=== PATIENT | male | born 1950 | race Caucasian/White ===

== ENCOUNTER 2017-06-17 10:16 | Emergency (ER) | payer MEDICARE ==
[2017-06-17 10:35] VITALS: BP 116/91
--- NOTE | 2017-06-17 10:44 | EDM.PDOC ---
ED HPI GENERAL MEDICAL PROBLEM - General Chief Complaint: Back Pain or Injury Stated Complaint: FELL; BACK INJURY Time Seen by Provider: 06/17/17 10:38 Source of Information: Reports: Patient, Family History Limitations: Reports: No Limitations - History of Present Illness INITIAL COMMENTS - FREE TEXT/NARRATIVE: pt was getting in the boat this am and his foot slipped and he developed acute pain in his rt post rib cabe when he fell and hit the live well in the boat. Onset: Today Duration: Hour(s): Location: Reports: Chest Associated Symptoms: Reports: No Other Symptoms, Other ( he does have an abrasion on his bacjk and he is current with tetanus. ) right back Pain Score (Numeric/FACES): 7 - Related Data Allergies Allergy/AdvReac Type Severity Reaction Status Date / Time No Known Allergies Allergy Verified 06/17/17 10:21 Home Meds: Home Meds NK [No Known Home Meds] 06/17/17 [History] Past Medical History Gastrointestinal History: Reports: Diverticulosis, Pancreatitis Social & Family History - Caffeine Use Caffeine Use: Reports: Coffee - Alcohol Use Days Per Week of Alcohol Use: 2 Number of Drinks Per Day: 1 Total Drinks Per Week: 2 - Recreational Drug Use Recreational Drug Use: No ED ROS GENERAL - Review of Systems Review Of Systems: See Below Constitutional: Reports: No Symptoms HEENT: Reports: No Symptoms Respiratory: Reports: Other (pt has pain when he takes a deep breath on the rt post rib cage. ) Cardiovascular: Reports: No Symptoms Endocrine: Reports: No Symptoms GI/Abdominal: Reports: No Symptoms : Reports: No Symptoms ED EXAM, UPPER BACK/NECK PAIN - Physical Exam Exam: See Below Text/Narrative:: Pt arrived with pain in the rt post rib cage. He has an abrasion on his back. He had a great deal of pain rt away and could not get up for about 15 minutes. Exam Limited By: No Limitations General Appearance: Alert, Anxious, Moderate Distress Ears Exam: Normal TMs Nose Exam: Normal Inspection Throat/Mouth Exam: Normal Inspection Neck Exam: Non-Tender Cardiovascular/Respiratory: Regular Rate, Rhythm, Other (pt has a large abrasion on the rt post rib cage. There is slight swelling present. He is very tender to palpate in the area of the abrasion. He has breath sounds bilaterally. He has no tenderness over the tspine area. ) GI/Abdominal: Soft, Non-Tender (Male) Exam: Deferred Rectal (Males) Exam: Deferred, Perirectal Abscess Extremities: Normal Inspection Neurologic: Alert Psychiatric: Normal Affect Course - Vital Signs Last Recorded V/S: Last Vital Signs Temp 36.3 C 06/17/17 10:24 Pulse 78 06/17/17 10:24 Resp 20 06/17/17 10:24 BP 116/91 H 06/17/17 10:24 Pulse Ox 95 06/17/17 10:24 - Orders/Labs/Meds Orders: Active Orders 24 hr Category Date Time Status Ang Chest [CT] Stat Exams 06/17/17 11:42 Taken Chest 2V [CR] Stat Exams 06/17/17 10:35 Taken Ribs 3V wo Chest Rt [CR] Stat Exams 06/17/17 10:36 Taken UA W/MICROSCOPIC [URIN] Urgent Lab 06/17/17 12:34 Uncollected Iopamidol [Isovue-370 (76%)] Med 06/17/17 12:15 Active 100 ml IV . DIRECTED Sodium Chloride 0.9% [Normal Saline] 90 ml Med 06/17/17 12:15 Active IV ASDIRECTED Sodium Chloride 0.9% [Saline Flush] Med 06/17/17 11:08 Active 10 ml FLUSH ASDIRECTED PRN Saline Lock Insert [OM.PC] Routine Oth 06/17/17 11:08 Ordered Medication Orders Sodium Chloride (Normal Saline) 90 mls @ 4 mls/sec IV ASDIRECTED ROSARIO Last Admin: 06/17/17 12:25 Dose: 4 mls/sec Iopamidol (Isovue-370 (76%)) 100 ml IV . DIRECTED ROSARIO Last Admin: 06/17/17 12:25 Dose: 100 ml Sodium Chloride (Saline Flush) 10 ml FLUSH ASDIRECTED PRN PRN Reason: Keep Vein Open Labs: Laboratory Tests 06/17/17 06/17/17 Range/Units 11:21 11:21 WBC 11.0 (4.5-11.0) K/uL RBC 4.84 (4.30-5.90) M/uL Hgb 15.6 H (12.0-15.0) g/dL Hct 44.7 (40.0-54.0) % MCV 92 (80-98) fL MCH 32 H (27-31) pg MCHC 35 (32-36) % Plt Count 321 (150-400) K/uL Neut % (Auto) 82 H (36-66) % Lymph % (Auto) 9 L (24-44) % Toole % (Auto) 8 H (2-6) % Eos % (Auto) 1 L (2-4) % Baso % (Auto) 1 (0-1) % Sodium 139 L (140-148) mmol/L Potassium 4.3 (3.6-5.2) mmol/L Chloride 105 (100-108) mmol/L Carbon Dioxide 29 (21-32) mmol/L Anion Gap 9.3 (5.0-14.0) mmol/L BUN 15 (7-18) mg/dL Creatinine 1.2 (0.8-1.3) mg/dL Est Cr Clr Drug Dosing 71.35 mL/min Estimated GFR (MDRD) > 60 (>60) Glucose 129 H (74-106) mg/dL Calcium 8.9 (8.5-10.1) mg/dL Meds: Medications Generic Name Dose Route Start Last Admin Trade Name Freq PRN Reason Stop Dose Admin Sodium Chloride 90 mls @ 4 mls/sec 06/17/17 12:15 06/17/17 12:25 Normal Saline IV 4 mls/sec ASDIRECTED ROSARIO Administration Iopamidol 100 ml 06/17/17 12:15 06/17/17 12:25 Isovue-370 (76%) IV 100 ml . DIRECTED ROSARIO Administration Sodium Chloride 10 ml 06/17/17 11:08 Saline Flush FLUSH ASDIRECTED PRN Keep Vein Open Discontinued Medications Generic Name Dose Route Start Last Admin Trade Name Fresathish PRN Reason Stop Dose Admin Bacitracin 1 dose 06/17/17 10:50 06/17/17 11:49 Bacitracin Oint 1 Gm TOP 06/17/17 10:51 1 dose ONETIME ONE Administration Cyclobenzaprine HCl 10 mg 06/17/17 10:45 06/17/17 10:54 Flexeril PO 06/17/17 10:46 10 mg ONETIME ONE Administration Hydromorphone HCl 0.5 mg 06/17/17 11:14 06/17/17 11:44 Dilaudid IVPUSH 06/17/17 11:15 0.5 mg ONETIME ONE Administration Ketorolac Tromethamine 60 mg 06/17/17 10:45 06/17/17 10:54 Toradol IM 06/17/17 10:46 60 mg ONETIME ONE Administration Sodium Chloride 10 ml 06/17/17 12:03 06/17/17 12:25 Saline Flush FLUSH 06/17/17 12:04 10 ml ONETIME ONE Administration - Re-Assessments/Exams Free Text/Narrative Re-Assessment/Exam: 06/17/17 12:32 pt had a chest xray which looked good. He had rib detail which showed at least 2 fractured ribs just laterasl to the spine posteriorly. Because of the area of contusion a decision was made to cat scan the chest. 06/17/17 13:16 cat scan was obtained which showed a fracture of his 8th and 9th ribs. He has no evidence of a pneumothorax or infiltrate. He has a 1 cm nodule in the rt upper lobe which needs further workup. Departure - Departure Time of Disposition: 13:18 Disposition: Home, Self-Care 01 Condition: Fair Clinical Impression: Fracture, ribs - Discharge Information Referrals: PCP,None [Primary Care Provider] - Forms: ED Department Discharge Care Plan Goals: encourage deep breathing, incentive spirometer, bacatracin to the abrasion, percocet 5/325 q6h prn for pain, flexeril 10mg hs. follow up with own physian regarding a 1 cm nodule in the rt upper lobe, copy of the disc to go with the pt , copy of the cat scan report to go with pt, try a rib belt and see if he is more comfortable. - My Orders Last 24 Hours: My Active Orders 06/17/17 10:35 Chest 2V [CR] Stat 06/17/17 10:36 Ribs 3V wo Chest Rt [CR] Stat 06/17/17 11:08 Sodium Chloride 0.9% [Saline Flush] 10 ml FLUSH ASDIRECTED PRN Saline Lock Insert [OM.PC] Routine 06/17/17 11:42 Ang Chest [CT] Stat 06/17/17 12:15 Iopamidol [Isovue-370 (76%)] 100 ml IV . DIRECTED Sodium Chloride 0.9% [Normal Saline] 90 ml IV ASDIRECTED 06/17/17 12:34 UA W/MICROSCOPIC [URIN] Urgent - Assessment/Plan Last 24 Hours: My Active Orders 06/17/17 10:35 Chest 2V [CR] Stat 06/17/17 10:36 Ribs 3V wo Chest Rt [CR] Stat 06/17/17 11:08 Sodium Chloride 0.9% [Saline Flush] 10 ml FLUSH ASDIRECTED PRN Saline Lock Insert [OM.PC] Routine 06/17/17 11:42 Ang Chest [CT] Stat 06/17/17 12:15 Iopamidol [Isovue-370 (76%)] 100 ml IV . DIRECTED Sodium Chloride 0.9% [Normal Saline] 90 ml IV ASDIRECTED 06/17/17 12:34 UA W/MICROSCOPIC [URIN] Urgent
[2017-06-17] MEDS ORDERED: Ketorolac 60 MG/2 ML SDV IM ONE (10:45)
[2017-06-17] MEDS ORDERED: Cyclobenzaprine 10 MG Tab PO ONE (10:45)
[2017-06-17] MEDS ORDERED: Bacitracin Oint 1 GM U/D Packet TOP ONE (10:50)
[2017-06-17] MEDS ORDERED: Sodium Chloride 0.9% 10 ML Syringe FLUSH PRN (11:08)
[2017-06-17] MEDS ORDERED: HYDROmorphone 0.5 MG/0.5 ML Syringe IVPUSH ONE (11:14)
[2017-06-17] MEDS ORDERED: Sodium Chloride 0.9% 10 ML Syringe FLUSH ONE (12:03)
[2017-06-17] MEDS ORDERED: Sodium Chloride 0.9% 90 ML IV SCH (12:15)
[2017-06-17] MEDS ORDERED: Iopamidol 755 Mg/ML 100 ML Bottle IV SCH (12:15)
[2017-06-17] MEDS ORDERED: Acetaminophen/oxyCODONE 325-5 MG Tab PO ONE (13:18)
--- NOTE | 2017-06-18 09:01 | CR ---
Heart size within normal limits. Pulmonary nodule right upper lobe. Refer to chest CT report. This is near 1 cm. No pneumothorax. No focal consolidation.
--- NOTE | 2017-06-18 09:03 | CR ---
No pneumothorax. Fracture of the eighth right posterior rib. Refer to chest CT report. The right nint h posterior rib is obscured.
== END 2017-06-17 13:59 | disposition home or self-care (01) ==
LOC: JP.ED 10:16
DX: S22.41XA Multiple fractures of ribs, right side, initial encounter for closed fracture (principal); W01.198A Fall on same level from slipping, tripping and stumbling with subsequent striking against other object, initial encounter
CPT/HCPCS: 36415; 71020; 71101; 71275; 80048; 85025; 96372; 96374; 99284; A9270; J1170; J1885; J7030; J7050; Q9967

== ENCOUNTER 2017-06-20 13:10 | Emergency (ER) | payer MEDICARE ==
[2017-06-20 13:27] VITALS: BP 126/99
[2017-06-20] MEDS ORDERED: Magnesium Citrate Solution 296 ML Bottle PO ONE (13:33)
--- NOTE | 2017-06-20 13:34 | EDM.PDOC ---
ED HPI GENERAL MEDICAL PROBLEM - General Chief Complaint: Back Pain or Injury Stated Complaint: BROKE RIBS/NEEDS MORE PAIN MEDS Time Seen by Provider: 06/20/17 13:34 Source of Information: Reports: Patient, Family History Limitations: Reports: No Limitations - History of Present Illness INITIAL COMMENTS - FREE TEXT/NARRATIVE: pt arrived with pain in the fractured rib sites.He has a history of a fractured 8th and 9th rib. Duration: Day(s): Location: Reports: Chest Associated Symptoms: Reports: Other (pt is constipated from the narcotics. ) Right Back Pain Score (Numeric/FACES): 7 - Related Data Allergies Allergy/AdvReac Type Severity Reaction Status Date / Time No Known Allergies Allergy Verified 06/20/17 13:25 Home Meds: Home Meds Acetaminophen/oxyCODONE [Percocet 325-5 MG] 1 tab PO Q6H PRN 06/20/17 [History] Cyclobenzaprine [Flexeril] 1 tab PO BEDTIME 06/20/17 [History] Past Medical History Gastrointestinal History: Reports: Cholelithiasis, Diverticulosis, Pancreatitis Musculoskeletal History: Reports: Fracture - Past Surgical History HEENT Surgical History: Reports: Tonsillectomy Social & Family History - Tobacco Use Smoking Status *Q: Former Smoker Used Tobacco, but Quit: Yes Month Tobacco Last Used: 0 - Caffeine Use Caffeine Use: Reports: Coffee - Alcohol Use Days Per Week of Alcohol Use: 2 Number of Drinks Per Day: 1 Total Drinks Per Week: 2 - Recreational Drug Use Recreational Drug Use: No ED ROS GENERAL - Review of Systems Review Of Systems: See Below Constitutional: Reports: No Symptoms HEENT: Reports: No Symptoms Respiratory: Reports: Other (pain in rt post rib cage from the rib fractures. ) Cardiovascular: Reports: No Symptoms Endocrine: Reports: No Symptoms GI/Abdominal: Reports: Constipation, Other (pt is constipated from the narcotics. ) ED EXAM, UPPER BACK/NECK PAIN - Physical Exam Exam: See Below Text/Narrative:: pt is here for a refill on his narcotics. Exam Limited By: No Limitations General Appearance: Alert, Moderate Distress Ears Exam: Normal TMs Nose Exam: Normal Inspection Throat/Mouth Exam: Normal Inspection Head Exam: Atraumatic Neck Exam: Non-Tender Back Exam: Other (pt has a abrasion on the back He has ) Extremities: Normal Inspection Neurologic: Alert, Oriented x 3 Course - Vital Signs Last Recorded V/S: Last Vital Signs Temp 36.1 C 06/20/17 13:22 Pulse 107 H 06/20/17 13:22 Resp 18 06/20/17 13:22 BP 126/99 H 06/20/17 13:22 Pulse Ox 94 L 06/20/17 13:22 - Orders/Labs/Meds Meds: Medications Discontinued Medications Generic Name Dose Route Start Last Admin Trade Name Lauren PRN Reason Stop Dose Admin Magnesium Citrate 296 ml 06/20/17 13:33 Citrate Of Magnesia PO 06/20/17 13:34 ONETIME ONE - Re-Assessments/Exams Free Text/Narrative Re-Assessment/Exam: 06/20/17 13:46 pt was given a bottle of mag citrate here at the er. Departure - Departure Time of Disposition: 13:34 Disposition: Home, Self-Care 01 Condition: Fair Clinical Impression: Rib fractures - Discharge Information Referrals: PCP,None [Primary Care Provider] - Forms: ED Department Discharge Care Plan Goals: push fluids, prunes 3-4 daily, gummy fibers 3-4 daily to keep stools regular, Start using motrin 600mg qid on a regular basis. refill flexeril 10mg hs, percocet 5/325 q6h prn for pain.
== END 2017-06-20 13:50 | disposition home or self-care (01) ==
LOC: JP.ED 13:10
DX: S20.411A Abrasion of right back wall of thorax, initial encounter (principal); X58.XXXA Exposure to other specified factors, initial encounter; Z87.891 Personal history of nicotine dependence
CPT/HCPCS: 99283; A9270